=== PATIENT | male | born 1990 | race Caucasian/White ===

== ENCOUNTER 2022-04-23 08:02 | Emergency (ER) | payer MEDICAID ==
[~2022-04-23] VITALS: Ht 175.3 cm; Wt 65.8 kg
[2022-04-23 08:06] VITALS: BP_SYST 114
--- NOTE | 2022-04-23 08:22 | NUR ---
Apolinar from poison advised. 4hrs observation, EKG, CMP,UDS, aspirin and tylenol level.
--- NOTE | 2022-04-23 08:30 | NUR ---
ER at bedside examining patient.
[2022-04-23 09:02] LABS: BASOPHILS # (AUTO) 0.1 K/uL (0.0-0.2); BASOPHILS % (AUTO) 1.1 % (0.0-2.0); EOSINOPHILS # (AUTO) 0.5 K/uL (0.0-0.4); EOSINOPHILS % (AUTO) 6.9 % (0.0-4.0); HEMATOCRIT 42.2 % (36-54); HEMOGLOBIN 14.7 g/dL (14.0-18.0); LYMPHOCYTES # (AUTO) 1.8 K/uL (1.0-5.5); MEAN CORPUSCULAR HEMOGLOBIN 29 pg (27-31); MEAN CORPUSCULAR HGB CONC 35 % (32-36); MEAN CORPUSCULAR VOLUME 84 fL (79.0-98.0); MONOCYTES # (AUTO) 0.6 K/uL (0.0-1.0); MONOCYTES % (AUTO) 8.4 % (1.7-9.3); NEUTROPHILS # (AUTO) 4.2 K/uL (1.8-7.7); NEUTROPHILS % (AUTO) 58.6 % (40.0-70.0); PLATELET COUNT (AUTO) 273 K/uL (130-430); RED BLOOD CELL COUNT(AUTO) 5.04 MIL/uL (4.2-6.2); RED CELL DISTRIBUTION WIDTH 13.7 % (9.0-15.0); WHITE BLOOD COUNT (AUTO) 7.2 K/uL (4.8-10.8)
[2022-04-23 09:14] LABS: ANION GAP 6 (5-15); CHLORIDE 103 mmol/L (98-107); CREATININE 0.99 mg/dL (0.55-1.30); GLUCOSE 112 mg/dL (70-99); SODIUM SERUM 136 mmol/L (136-145); UREA NITROGEN, BLOOD 13 mg/dL (8-21)
[2022-04-23 09:17] LABS: GFR AFRICAN AMERICAN 113 mL/min (>90)
[2022-04-23 09:28] LABS: ALANINE AMINOTRANSFERASE 22 U/L (12-78); ALBUMIN 3.4 g/dL (3.4-4.8); ASPARTATE AMINOTRANSFERASE 19 U/L (10-37); TOTAL BILIRUBIN 0.4 mg/dL (0.0-1.0)
--- NOTE | 2022-04-23 09:30 | NUR ---
Covid swab done and sent to lab.
[2022-04-23 09:31] LABS: ACETAMINOPHEN < 1 ug/mL (1-30); ALCOHOL, BLOOD < 3 mg/dL (<10)
--- NOTE | 2022-04-23 09:31 | NUR ---
EKG performed at BS. Physician given copy of EKG for review.
--- NOTE | 2022-04-23 10:12 | NUR ---
Urine collected and sent to lab.
[2022-04-23 11:09] LABS: BARBITURATE, URINE NEGATIVE (NEG <=200); BENZODIAZEPINE, URINE NEGATIVE (NEG <=150); CANNABINOID, URINE NEGATIVE (NEG <=50); COCAINE, URINE NEGATIVE (NEG <=150); METHAMPHETAMINES SCREEN,URINE NEGATIVE (NEG <=500); OPIATE, URINE NEGATIVE (NEG <=100); PHENCYCLIDINE SCREEN,URINE NEGATIVE (NEG <=25); UR TRICYCLIC ANTIDEPRESSANTS NEGATIVE (NEG <=300); URINE AMPHETAMINE NEGATIVE (NEG <=500); URINE METHADONE NEGATIVE (NEG <=200); URINE OXYCODONE SCREEN NEGATIVE (NEG <=100); URINE PROPOXYPHENE SCREEN NEGATIVE (NEG <=300)
--- NOTE | 2022-04-23 11:23 | NUR ---
Called and gave report to Brianne from [facility]. Clinicals have been given. Accepting physician is Dr. López and pt will be going to [facility]. Transportion in process.
--- NOTE | 2022-04-23 13:30 | NUR ---
Received report from Anali COLLIER; assumed care of patient at this time.
--- NOTE | 2022-04-23 13:40 | NUR ---
First contact with patient made at this time. Patient resting comfortably with side rails raised and sitter at bedside. Patient A/Ox4, VSS, resp even and unlabored. Patient denies SI at this time. Nad noted at this time. Will continue to monitor.
--- NOTE | 2022-04-23 14:00 | NUR ---
Patient transported back to [facility] accompained by [facility]. Sebastian noted at this time.
[2022-04-23 16:23] VITALS: BP_SYST 105
== END 2022-04-23 16:23 ==
LOC: SED 08:02
DX: T43.211A Poisoning by selective serotonin and norepinephrine reuptake inhibitors, accidental (unintentional), initial encounter (principal); R45.851 Suicidal ideations; Z20.822 Contact with and (suspected) exposure to COVID-19; Y92.89 Other specified places as the place of occurrence of the external cause
CPT/HCPCS: 99284; 87426; 80307; 80053; 85025; 36415; 93005; 83605; G0482; G0480; G0481